=== PATIENT | male | born 1990 | race Hispanic/Latino ===

== ENCOUNTER 2019-07-24 07:51 | Day surgery (SDC) | payer OTHER ==
[2019-07-22 15:23] VITALS: BP 128/58
[~2019-07-24] VITALS: Ht 170.2 cm; Wt 64.5 kg
[2019-07-24] VITALS (16 sets, daily range): BP systolic 90–125; BP diastolic 34–81
[2019-07-24] MEDS: CEFAZOLIN SODIUM 1 GM VIAL IVP SCH ×2 (08:00→08:48)
[2019-07-24] MEDS ORDERED: LACTATED RINGERS 1000ML 1,000 ML IV ONE (08:18)
[2019-07-24] MEDS ORDERED: LIDOCAINE HCL 1% 20 ML VIAL ONE (08:28)
[2019-07-24] MEDS ORDERED: BACITRACIN 28.4 GM OINT TP ONE (08:28)
[2019-07-24] MEDS ORDERED: BUPIVACAINE/PF 0.25% 30ML VIAL IJ ONE (08:28)
[2019-07-24] MEDS ORDERED: MIDAZOLAM HCL 1 MG/ML 2ML VIAL ONE (08:37)
[2019-07-24] MEDS ORDERED: PROPOFOL 10 MG/ML 20ML VIAL IV ONE (08:39)
[2019-07-24] MEDS ORDERED: LIDOCAINE PF 2% 5ML ABBOJECT ONE (08:39)
[2019-07-24] MEDS ORDERED: FENTANYL CITRATE PF 50 MCG/1 ML 2ML VIAL ONE ×2 (08:39→09:20)
[2019-07-24] MEDS ORDERED: KETOROLAC TROMETHAMINE 30MG/ML ONE (08:59)
[2019-07-24] MEDS ORDERED: MEPERIDINE-PF 25 MG/ML SYG ONE (09:10)
[2019-07-24] MEDS ORDERED: ONDANSETRON HCL 4 MG/2 ML VIAL ONE (09:12)
[2019-07-24] MEDS ORDERED: DEXAMETHASONE SOD PHOSPHATE 10MG/ML 1ML VIAL ONE (09:12)
--- NOTE | 2019-07-24 11:40 | NUR ---
PT . LEFT VIA WHEELCHAIR NO COMPLICATIONS DRESSING DRY AND INTACT, D/C AND RX SCRIPT GIVEN TO MOM WITH F/U APPT
== END 2019-07-24 12:40 | disposition home or self-care (01) ==
LOC: DAH 07:51
PROVIDERS: ATTEND Urology
DX: N47.1 Phimosis (principal); E11.9 Type 2 diabetes mellitus without complications; I10 Essential (primary) hypertension; F32.9 Major depressive disorder, single episode, unspecified
CPT/HCPCS: 54161; 88304; A4215; A4221; A4222; A4223; A4510; A4600; A4663; A6260; J0690; J1100; J1885; J2001; J2175; J2250; J2405; J2704; J3010 ×2; J3490; J7120